=== PATIENT | male | born 1955 | race Caucasian/White ===

== ENCOUNTER 2023-06-19 10:03 | Outpatient (CLI) | payer OTHER | END 2023-06-19 23:59 | disposition critical access hospital (66) | LOC: EMS 10:03 | DX: E11.649 Type 2 diabetes mellitus with hypoglycemia without coma (principal) | CPT/HCPCS: A0425; A0427 ==

== ENCOUNTER 2023-06-19 10:22 | Emergency (ER) | payer OTHER ==
[2023-06-19 10:46] LABS: BASOPHILS # (AUTO) 0.1 10^3/uL (0.0-0.1); BASOPHILS % (AUTO) 0.5 %; EOSINOPHILS % (AUTO) 0.2 %; HCT - HEMATOCRIT 38.4 % (42.0-52.0); HGB - HEMOGLOBIN 11.9 g/dL (14.0-18.0); LYMPHOCYTES # (AUTO) 2.1 10^3/uL (1.5-3.5); LYMPHOCYTES % (AUTO) 11.4 %; MEAN CORPUSCULAR HEMOGLOBIN 28.5 pg (27.0-31.0); MEAN CORPUSCULAR VOLUME 91.9 fL (80.0-94.0); MEAN PLATELET VOLUME 10.4 fL (7.4-11.4); MONOCYTES # (AUTO) 0.6 10^3/uL (0.0-1.0); MONOCYTES % (AUTO) 3.3 %; NEUTROPHILS # (AUTO) 15.7 10^3/uL (1.5-6.6); NEUTROPHILS % (AUTO) 83.9 %; PLT - PLATELET COUNT 397 10^3/uL (130-450); RED BLOOD COUNT 4.18 10^6/uL (4.70-6.10); RED CELL DISTRIBUTION WIDTH 13.7 % (12.0-15.0); WHITE BLOOD COUNT 18.7 x10^3/uL (4.8-10.8)
[2023-06-19 11:06] LABS: ALBUMIN 4.8 g/dL (3.2-5.5)
[2023-06-19 11:12] LABS: ALBUMIN/GLOBULIN RATIO 1.9 (1.0-2.2); BILIRUBIN,TOTAL 0.4 mg/dL (0.2-1.0); CALCIUM 9.4 mg/dL (8.5-10.3); CREATININE 5.6 mg/dL (0.6-1.3); POTASSIUM 5.8 mmol/L (3.5-4.5); TOTAL PROTEIN 7.3 g/dL (6.4-8.9)
--- NOTE | 2023-06-19 11:15 | ED Physician Documentation ---
History of Present Illness - Stated complaint Stated Complaint: LOW BLOOD SUGAR - Chief complaint Chief Complaint: General - History obtained from History obtained from: Patient, EMS - Additonal information Additional information: 67-year-old male presents by EMS from his assisted living facility for altered mental status, hypoglycemia. History is obtained mostly from EMS, who states that patient has had nausea and diarrhea for the last several days. Staff checked on him this morning and he was found to be hypoglycemic in the 30s. They gave him oral glucose and a glucose tablet and called EMS. When EMS arrived his glucose was in the 90s, however shortly after they placed him in the ambulance his repeat glucose was in the 40s. He was given an amp of D25 and transported for evaluation. Patient is slightly confused on arrival, he is not certain why he is here. Patient has non insulin-dependent diabetes. Review of Systems Unable to obtain: Confused PD PAST MEDICAL HISTORY - Past Medical History Past Medical History: Yes Cardiovascular: Congestive heart failure, Hypertension, High cholesterol, Peripheral Vascular Disease Neuro: Parkinson's Endocrine/Autoimmune: Type 2 diabetes - Present Medications Home Medications: Ambulatory Orders Medication Instructions Recorded Confirmed Amlodipine Besylate [Norvasc] 10 mg PO DAILY 06/19/23 06/19/23 Aspirin [[place] Aspirin] 81 mg PO DAILY 06/19/23 06/19/23 Atorvastatin Calcium 40 mg PO HS 06/19/23 06/19/23 Cetirizine [ZyrTEC] 10 mg PO DAILY 06/19/23 06/19/23 DULoxetine [Cymbalta] 60 mg PO DAILY 06/19/23 06/19/23 Famotidine [Acid Patient Registration Supervisor] 20 mg PO DAILY 06/19/23 06/19/23 Furosemide [Lasix] 20 mg PO DAILY 06/19/23 06/19/23 Gabapentin [Neurontin] 600 mg PO TID 06/19/23 06/19/23 Glipizide [Glipizide Xl] 10 mg PO DAILY 06/19/23 06/19/23 Melatonin 10 mg PO HS 06/19/23 06/19/23 Meloxicam 7.5 mg PO DAILY 06/19/23 06/19/23 Metformin HCl 1,000 mg PO BID 06/19/23 06/19/23 Mirtazapine 30 mg PO DAILY 06/19/23 06/19/23 Trazodone HCl 100 mg PO HS 06/19/23 06/19/23 cilostazoL [Cilostazol] 100 mg PO DAILY 06/19/23 06/19/23 - Allergies Allergies/Adverse Reactions: Allergies Allergy/AdvReac Type Severity Reaction Status Date / Time No Known Drug Allergies Allergy Unverified 06/19/23 10:32 - Social History Does the pt smoke?: No Smoking Status: Never smoker PD ED PE NORMAL - Vitals Vital signs reviewed: Yes - General General: Other (disheveled, ill appearing, appears chronically unwell, older than stated age) - HEENT HEENT: Atraumatic - Neck Neck: Supple, no meningeal sign - Cardiac Cardiac: RRR - Respiratory Respiratory: No respiratory distress, Clear bilaterally - Abdomen Abdomen: Soft, Non distended - Derm Derm: Normal color, Warm and dry, No rash - Extremities Extremities: No deformity, No edema - Neuro Neuro: deck steward 2-12 intact, No motor deficit, Normal speech Results - Vitals Vitals: Vital Signs - 24 hr 06/19/23 06/19/23 06/19/23 10:26 12:31 14:00 Temperature 35.9 C L Heart Rate 97 95 94 Respiratory 16 18 15 Rate Blood Pressure 137/63 H 114/54 L 115/64 O2 Saturation 93 96 97 06/19/23 06/19/23 16:00 18:00 Temperature Heart Rate 87 93 Respiratory 16 16 Rate Blood Pressure 120/54 L 109/53 L O2 Saturation 100 100 Oxygen O2 Source Room air - Labs Labs: Laboratory Tests 06/19/23 06/19/23 06/19/23 10:20 10:42 10:42 WBC 18.7 H RBC 4.18 L Hgb 11.9 L Hct 38.4 L MCV 91.9 MCH 28.5 MCHC 31.0 L RDW 13.7 Plt Count 397 MPV 10.4 Neut # (Auto) 15.7 H Lymph # (Auto) 2.1 [place] # (Auto) 0.6 Eos # (Auto) 0.0 Baso # (Auto) 0.1 Absolute Nucleated RBC 0.00 Nucleated RBC % 0.0 Bld Gas Analysis Time Sample Site ABG pH ABG pCO2 ABG pO2 ABG HCO3 ABG Total CO2 ABG O2 Saturation ABG Base Excess Vinny Test Room Air Sodium 139 Potassium 5.8 H Chloride 99 L Carbon Dioxide 12 L* Anion Gap 28.0 H BUN 58 H Creatinine 5.6 H Estimated GFR (MDRD) 11 L Glucose 134 H Lactic Acid Calcium 9.4 Total Bilirubin 0.4 AST 14 ALT 25 Alkaline Phosphatase 77 Total Creatine Kinase Total Protein 7.3 Albumin 4.8 Globulin 2.5 Albumin/Globulin Ratio 1.9 Lipase 18 Urine Color Urine Clarity Urine pH Ur Specific [place] Urine Protein Urine Glucose (UA) Urine Ketones Urine Occult Blood Urine Nitrite Urine Bilirubin Urine Urobilinogen Ur Leukocyte Esterase Ur Microscopic Review Urine Culture Comments Salicylates < 1.5 Urine Opiates Screen Ur Oxycodone Screen Urine Methadone Screen Ur Propoxyphene Screen Acetaminophen < 0.1 Ur Barbiturates Screen Ur Tricyclics Screen Ur Phencyclidine Scrn Ur Amphetamine Screen U Methamphetamines Scrn U Benzodiazepines Scrn Urine Cocaine Screen U Cannabinoids Screen Ethyl Alcohol < 10.0 SARS-CoV-2 (PCR) 06/19/23 06/19/23 06/19/23 10:42 11:10 12:05 WBC RBC Hgb Hct MCV MCH MCHC RDW Plt Count MPV Neut # (Auto) Lymph # (Auto) [place] # (Auto) Eos # (Auto) Baso # (Auto) Absolute Nucleated RBC Nucleated RBC % Bld Gas Analysis Time 1140 Sample Site RIGHT RADIAL ABG pH 7.08 L* ABG pCO2 36 ABG pO2 112 H ABG HCO3 10.6 L ABG Total CO2 12.0 L ABG O2 Saturation 96 ABG Base Excess -19.0 L Vinny Test POSITIVE Room Air YES Sodium Potassium Chloride Carbon Dioxide Anion Gap BUN Creatinine Estimated GFR (MDRD) Glucose Lactic Acid > 10.0 H* Calcium Total Bilirubin AST ALT Alkaline Phosphatase Total Creatine Kinase 78 Total Protein Albumin Globulin Albumin/Globulin Ratio Lipase Urine Color Urine Clarity Urine pH Ur Specific [place] Urine Protein Urine Glucose (UA) Urine Ketones Urine Occult Blood Urine Nitrite Urine Bilirubin Urine Urobilinogen Ur Leukocyte Esterase Ur Microscopic Review Urine Culture Comments Salicylates Urine Opiates Screen Ur Oxycodone Screen Urine Methadone Screen Ur Propoxyphene Screen Acetaminophen Ur Barbiturates Screen Ur Tricyclics Screen Ur Phencyclidine Scrn Ur Amphetamine Screen U Methamphetamines Scrn U Benzodiazepines Scrn Urine Cocaine Screen U Cannabinoids Screen Ethyl Alcohol SARS-CoV-2 (PCR) 06/19/23 06/19/23 06/19/23 13:04 13:04 13:12 WBC RBC Hgb Hct MCV MCH MCHC RDW Plt Count MPV Neut # (Auto) Lymph # (Auto) [place] # (Auto) Eos # (Auto) Baso # (Auto) Absolute Nucleated RBC Nucleated RBC % Bld Gas Analysis Time Sample Site ABG pH ABG pCO2 ABG pO2 ABG HCO3 ABG Total CO2 ABG O2 Saturation ABG Base Excess Vinny Test Room Air Sodium Potassium Chloride Carbon Dioxide Anion Gap BUN Creatinine Estimated GFR (MDRD) Glucose Lactic Acid Calcium Total Bilirubin AST ALT Alkaline Phosphatase Total Creatine Kinase Total Protein Albumin Globulin Albumin/Globulin Ratio Lipase Urine Color YELLOW Urine Clarity CLEAR Urine pH 5.5 Ur Specific [place] 1.025 Urine Protein NEGATIVE Urine Glucose (UA) NEGATIVE Urine Ketones TRACE Urine Occult Blood NEGATIVE Urine Nitrite NEGATIVE Urine Bilirubin NEGATIVE Urine Urobilinogen 0.2 (NORMAL) Ur Leukocyte Esterase NEGATIVE Ur Microscopic Review NOT INDICATED Urine Culture Comments NOT INDICATED Salicylates Urine Opiates Screen NEGATIVE Ur Oxycodone Screen NEGATIVE Urine Methadone Screen NEGATIVE Ur Propoxyphene Screen NEGATIVE Acetaminophen Ur Barbiturates Screen NEGATIVE Ur Tricyclics Screen NEGATIVE Ur Phencyclidine Scrn NEGATIVE Ur Amphetamine Screen NEGATIVE U Methamphetamines Scrn NEGATIVE U Benzodiazepines Scrn NEGATIVE Urine Cocaine Screen NEGATIVE U Cannabinoids Screen NEGATIVE Ethyl Alcohol SARS-CoV-2 (PCR) NOT DETECTED 06/19/23 15:04 WBC RBC Hgb Hct MCV MCH MCHC RDW Plt Count MPV Neut # (Auto) Lymph # (Auto) [place] # (Auto) Eos # (Auto) Baso # (Auto) Absolute Nucleated RBC Nucleated RBC % Bld Gas Analysis Time Sample Site ABG pH ABG pCO2 ABG pO2 ABG HCO3 ABG Total CO2 ABG O2 Saturation ABG Base Excess Vinny Test Room Air Sodium 141 Potassium 5.4 H Chloride 99 L Carbon Dioxide 10 L* Anion Gap 32.0 H BUN 61 H Creatinine 5.7 H Estimated GFR (MDRD) 10 L Glucose 151 H Lactic Acid Calcium 8.8 Total Bilirubin 0.4 AST 14 ALT 24 Alkaline Phosphatase 69 Total Creatine Kinase Total Protein 6.7 Albumin 4.4 Globulin 2.3 Albumin/Globulin Ratio 1.9 Lipase Urine Color Urine Clarity Urine pH Ur Specific [place] Urine Protein Urine Glucose (UA) Urine Ketones Urine Occult Blood Urine Nitrite Urine Bilirubin Urine Urobilinogen Ur Leukocyte Esterase Ur Microscopic Review Urine Culture Comments Salicylates Urine Opiates Screen Ur Oxycodone Screen Urine Methadone Screen Ur Propoxyphene Screen Acetaminophen Ur Barbiturates Screen Ur Tricyclics Screen Ur Phencyclidine Scrn Ur Amphetamine Screen U Methamphetamines Scrn U Benzodiazepines Scrn Urine Cocaine Screen U Cannabinoids Screen Ethyl Alcohol SARS-CoV-2 (PCR) PD Medical Decision Making - ED course Complexity details: reviewed old records, reviewed results, re-evaluated patient, considered differential, d/w patient, d/w science consultant ED course: Chronically well-appearing without acutely toxic patient presenting for recurrent hypoglycemia. He does take a sulfonylurea as one of his diabetic medications. Laboratory work is ordered. We will closely monitor for recurrent hypoglycemia. No further episodes of hypoglycemia, however patient's laboratory work shows numerous derangements. There are no previous for comparison, however patient has elevated creatinine, decreased CO2, lactic acid greater than 10, potassium 5.8. Continued IV fluids with the addition of sodium bicarb and a drip. Elevated WBC count, uncertain etiology, but will broaden work-up to include blood cultures and a dose of IV antibiotics, however there is no obvious source at this time. Patient has no complaints other than his diarrhea. I spoke with nursing staff at his assisted living facility, who states that he has not been eating or drinking very much over the last several days because there is a COVID-19 outbreak at the assisted living facility and he is afraid of catching the virus. He was placed in an assisted living facility because he was not caring for himself while living independently at home and his daughter elected to place him in assisted care. He has not been on antibiotics recently. They do note that he has fallen multiple times over the last several days and most recently fell overnight. They state that he was checked on at midnight and he was in his bed, and when they checked on him again at 5 this morning he was found on the ground, which prompted them to check his blood glucose. Additional CT imaging ordered. Coffey placed for close urine output monitoring. Despite 2 L of normal saline as well as several hours on a bicarb drip the patient's laboratory work has actually worsened. After discussion with on-call hospitalist, it was agreed that this patient will likely eventually need dialysis, at the very least he needs to be in a facility with nephrology capabilities. Discussed patient's case with Dr. Tang of [facility] nephrology, who requested Lokelma 10 mg every 6 hours and continuation on bicarb drip, however this can be decreased to 125 cc/h. Agree that patient needs transfer to nephrology capable facility. - Critical Care Time(min): 68 Time Includes: Direct patient care, Review records, Reassess patient, Document care, Coordinate care, Medical consult, See progress note Data interpretation: Labs, ABG, CXR, Prior EKG, Cardiac output, See progress note Procedures included in critical care time: Peripheral IV Procedures excluded from critical care time: See progress note Departure - Departure Disposition: 02 Transfer Acute Care Hosp Clinical Impression: Metabolic acidosis Acute kidney failure Qualifiers: Acute renal failure type: unspecified Qualified Code(s): N17.9 - Acute kidney failure, unspecified Altered mental status Qualifiers: Altered mental status type: unspecified Qualified Code(s): R41.82 - Altered mental status, unspecified Diarrhea Qualifiers: Diarrhea type: unspecified type Qualified Code(s): R19.7 - Diarrhea, unspecified Condition: Poor Forms: PCP List
[2023-06-19 11:55] LABS: ABG HCO3 10.6 mmol/L (22.0-26.0); ABG OXYGEN SATURATION 96 % (94-98); ABG PCO2 36 mmHg (34-45); ABG PO2 112 mmHg (80-100); ALLEN TEST POSITIVE
[2023-06-19 11:57] LABS: ABG PH 7.08 (7.35-7.45)
[2023-06-19] MEDS: SODIUM CHLORIDE 0.9% 1,000 ML IV STA ×2 (12:07→14:25)
[2023-06-19] MEDS: SODIUM BICARBONATE 150 MEQ in DEXTROSE 5% 1,000 ML IV STA ×2 (12:39→18:33)
[2023-06-19] MEDS: PIPERACILLIN/TAZOBACTAM 3.375 GM in SODIUM CHLORIDE 0.9% MINIBAG 100 ML IV STA (12:41)
[2023-06-19 13:24] LABS: MUDS CUTOFF CONCENTRATIONS CUTOFF CONC BELOW:
[2023-06-19 13:26] LABS: BILIRUBIN,URINE NEGATIVE (NEGATIVE); GLUCOSE, URINE (UA) NEGATIVE (NEGATIVE); KETONES,URINE (UA) TRACE mg/dL (NEGATIVE); LEUKOCYTE ESTERASE, URINE NEGATIVE (NEGATIVE); NITRITE,URINE NEGATIVE (NEGATIVE); OCCULT BLOOD,URINE NEGATIVE (NEGATIVE); PH,URINE 5.5 PH (5.0-7.5); PROTEIN,URINE NEGATIVE (NEGATIVE); UROBILINOGEN,URINE 0.2 (NORMAL) E.U./dL (NORMAL)
[2023-06-19 13:29] LABS: CLARITY,URINE CLEAR (CLEAR)
[2023-06-19 13:30] LABS: ETOH - ETHANOL < 10.0 mg/dL
[2023-06-19 13:31] LABS: ACETAMINOPHEN < 0.1 ug/mL; SALICYLATE < 1.5 mg/dL
[2023-06-19 13:46] LABS: AMPHETAMINE SCREEN,URINE NEGATIVE (NEGATIVE); BARBITURATE SCREEN,UR NEGATIVE (NEGATIVE); BENZODIAZEPINES SCREEN, URINE NEGATIVE (NEGATIVE); COCAINE SCREEN URINE NEGATIVE (NEGATIVE); METHADONE SCREEN, URINE NEGATIVE (NEGATIVE); METHAMPHETAMINES SCREEN, URINE NEGATIVE (NEGATIVE); OPIATE SCREEN, URINE NEGATIVE (NEGATIVE); OXYCODONE SCREEN, URINE NEGATIVE (NEGATIVE); PROPOXYPHENE SCREEN, URINE NEGATIVE (NEGATIVE); THC CANNABINOID SCREEN, URINE NEGATIVE (NEGATIVE); TRICYCLIC ANTIDEPRESSANT,URINE NEGATIVE (NEGATIVE)
[2023-06-19] MEDS: LOPERAMIDE 2 MG CAPSULE PO STA (14:25)
--- NOTE | 2023-06-19 15:00 | CT Report ---
PROCEDURE: HEAD WO INDICATIONS: glf, ams TECHNIQUE: Noncontrast 4.5 mm thick angled axial sections acquired from the foramen magnum to the vertex. For r adiation dose reduction, the following was used: automated exposure control, adjustment of mA and/or kV according to patient size. COMPARISON: None. FINDINGS: Image quality: Excellent. CSF spaces: Basal cisterns are patent. No extra-axial fluid collections. Ventricles are normal in size and shape. Brain: No midline shift. No intracranial masses or hemorrhage. Moses-white matter interface is norm al. Skull and face: Calvarium and visualized facial bones are intact, without suspicious lesions. Sinuses: Visualized sinuses and mastoids are clear. IMPRESSION: 1. No acute intracranial process. Reviewed by: Cecily Dukes MD on 06/19/2023 2:58 PM PST Approved by: Cecily Dukes MD on 06/19/2023 2:58 PM PST Station ID: [id number]
--- NOTE | 2023-06-19 15:21 | CT Report ---
PROCEDURE: ABDOMEN/PELVIS WO INDICATIONS: ABD PAIN/DIARRHEA/NEW RENAL FAILURE TECHNIQUE: A CT scan of the abdomen and pelvis was performed without the use of intravenous contrast. Images we re recorded and evaluated at appropriate window settings. Reformats: coronal and sagittal. For radiat ion dose reduction, the following was used: automated exposure control, adjustment of mA and/or kV ac cording to patient size. COMPARISON: None. FINDINGS: Image quality: Fair. Lung bases and heart: No pleural effusion. Right gynecomastia. Liver: Unremarkable. Gallbladder and biliary tree: No radiopaque stones or wall thickening. No biliary dilation. Spleen: No splenomegaly. Pancreas: Chronic calcific pancreatitis. No fluid collection. Adrenals: No adrenal nodule. Kidneys and ureters: No hydronephrosis. Possible punctate nonobstructing left kidney stone, (). N o renal cystic lesion which requires follow up. No solid mass. Bowel and peritoneum: No bowel distension. No pathologic free fluid. A few colonic diverticuli. Yulisa l appendix. Lymph nodes: No central or retroperitoneal adenopathy. Vessels: No infrarenal aortic aneurysm. Extensive plaque. PELVIS Reproductive organs: Unremarkable. Bladder: Decompressed with Coffey catheter. No stone.. Pelvic lymph nodes: No pelvic adenopathy by size criteria. Bones: No aggressive osseous abnormality. Left hip arthroplasty. Other: No significant ventral. Bilateral fat-containing Inguinal hernias. Vas deferens calcifications . IMPRESSION: 1. No hydronephrosis. No obstructive kidney stone. 2. Findings of chronic calcific pancreatitis. 3. No bowel obstruction. No free fluid. Reviewed by: Antwan Van MD on 06/19/2023 3:19 PM PST Approved by: Antwan Van MD on 06/19/2023 3:19 PM PST Station ID: [id number]
[2023-06-19 15:55] LABS: ALBUMIN 4.4 g/dL (3.2-5.5)
[2023-06-19 16:08] LABS: ALBUMIN/GLOBULIN RATIO 1.9 (1.0-2.2); BILIRUBIN,TOTAL 0.4 mg/dL (0.2-1.0); CALCIUM 8.8 mg/dL (8.5-10.3); CREATININE 5.7 mg/dL (0.6-1.3); POTASSIUM 5.4 mmol/L (3.5-4.5); TOTAL PROTEIN 6.7 g/dL (6.4-8.9)
[2023-06-19] MEDS: SODIUM ZIRCONIUM CYCLOSILICATE 5 GM PACKET PO ONE (16:57)
[2023-06-19] MEDS: LACTATED RINGERS 1,000 ML IV STA (17:15)
[2023-06-19] MEDS ORDERED: SODIUM BICARBONATE 150 MEQ in DEXTROSE 5% 1,000 ML IV SCH (19:00)
[2023-06-19 21:14] LABS: BASOPHILS % (AUTO) 0.4 %; EOSINOPHILS % (AUTO) 0.1 %; HCT - HEMATOCRIT 34.8 % (42.0-52.0); HGB - HEMOGLOBIN 10.5 g/dL (14.0-18.0); MEAN CORPUSCULAR HEMOGLOBIN 28.8 pg (27.0-31.0); MEAN CORPUSCULAR HGB CONC 30.2 g/dL (32.0-36.0); MEAN CORPUSCULAR VOLUME 95.3 fL (80.0-94.0); MEAN PLATELET VOLUME 10.5 fL (7.4-11.4); MONOCYTES % (AUTO) 8.1 %; NEUTROPHILS % (AUTO) 82.3 %; PLT - PLATELET COUNT 366 10^3/uL (130-450); RED BLOOD COUNT 3.65 10^6/uL (4.70-6.10); RED CELL DISTRIBUTION WIDTH 13.7 % (12.0-15.0); WHITE BLOOD COUNT 26.9 x10^3/uL (4.8-10.8)
[2023-06-19 21:20] LABS: ABNORMAL LYMPHS % (MANUAL) 0 %; BAND NEUTROPHILS % (MANUAL) 0 %
[2023-06-19 21:27] LABS: VBG BASE EXCESS -24.5 mmol/L (-2 - +2); VBG HCO3 6.5 mmol/L (23-28); VBG PCO2 30.1 mmHg (41-51); VBG PO2 97.3 mmHg (25-47); VBG TOTAL CO2 7.4 mmol/L (24-29)
[2023-06-19 21:28] LABS: VBG OXYGEN SATURATION 95.2 % (60-80)
[2023-06-19 21:30] LABS: VBG PH 6.951 (7.31-7.41)
[2023-06-19 21:32] LABS: ALBUMIN 4.3 g/dL (3.2-5.5)
[2023-06-19 21:40] LABS: LYMPHOCYTES # (MANUAL) 2.7 10^3/uL (1.5-3.5); LYMPHOCYTES % (MANUAL) 10 %; METAMYELOCYTES % (MANUAL) 1 %; MONOCYTES # (MANUAL) 1.3 10^3/uL (0.0-1.0); NEUTROPHILS # (MANUAL) 22.6 10^3/uL (1.5-6.6)
[2023-06-19 21:41] LABS: DIFFERENTIAL COMMENT MANUAL DIFFERENTIAL; PLATELET ESTIMATE, MANUAL NORMAL (130-450,000) (NORMAL); PLATELET MORPHOLOGY NORMAL APPEARANCE (NORMAL); RBC MORPHOLOGY (MULTIPLE) NORMAL APPEARANCE (NORMAL)
[2023-06-19 21:43] LABS: BILIRUBIN,TOTAL 0.3 mg/dL (0.2-1.0); CALCIUM 8.3 mg/dL (8.5-10.3); POTASSIUM 4.9 mmol/L (3.5-4.5); TOTAL PROTEIN 6.4 g/dL (6.4-8.9)
--- NOTE | 2023-06-19 22:00 | XRAY Report ---
PROCEDURE: Chest 1 View X-Ray INDICATIONS: ARF, critically ill TECHNIQUE: One view of the chest was acquired. COMPARISON: None. FINDINGS: Surgical changes and devices: None. Lungs and pleura: No pleural effusions or pneumothorax. Lungs are clear. Mediastinum: Mediastinal contours appear normal. Heart size is normal. Bones and chest wall: No suspicious bony lesions. Overlying soft tissues appear unremarkable. IMPRESSION: No acute cardiopulmonary process. Reviewed by: Rui Sánchez on 06/19/2023 9:58 PM [facility] Approved by: Rui Sánchez on 06/19/2023 9:58 PM [facility] Station ID: [id number]
[2023-06-19 23:58] VITALS: BP 106/57; O2SAT 95
[2023-06-20] MEDS ORDERED: SODIUM ZIRCONIUM CYCLOSILICATE 5 GM PACKET PO SCH
--- NOTE | 2023-06-21 05:00 | ED Physician Documentation ---
ED Addendum - Addendum Addendum: 06/21/23 04:55 I received signout/turnover of care on this patient from Dr. Live at change of shift. Please see her note for complete history and physical. In brief, patient is found to be in acute renal failure with profound metabolic acidosis, unclear etiology. Additionally, he is hyperkalemic. At the time of the turnover of care, a bed at an appropriate facility is being sought (would need to include nephrology services as well as dialysis capability). Early in my shift, repeat labs are performed. White blood cell count is increased from 18.7 to 26.9. pH on the initial ABG was 7.08; on repeat labs, a VBG was undertaken and this reveals pH of 6.95. CO2 was initially 12, decreased to 10, and, on my repeat labs, CO2 level is 8. Lactate level is >10 on initial and repeat. Creatinine has worsened from 5.6 to 6.0. The only notable improvement is potassium, trending down from 5.8, to 5.4, to 4.9. I discussed this case with Dr. Orellana (tool designer apprentice at [facility]). He accepts transfer of patient to [facility]. 06/21/23 05:00
== END 2023-06-20 00:35 | disposition short-term general hospital (02) ==
LOC: EDBD → EDSEX → EDUNIT# → ED 10:22
DX: E87.20 Acidosis, unspecified (principal); N17.9 Acute kidney failure, unspecified; R41.82 Altered mental status, unspecified; R19.7 Diarrhea, unspecified; I11.0 Hypertensive heart disease with heart failure; I50.9 Heart failure, unspecified; E78.00 Pure hypercholesterolemia, unspecified; G20.A1 Parkinson's disease without dyskinesia, without mention of fluctuations; E11.9 Type 2 diabetes mellitus without complications; Z20.822 Contact with and (suspected) exposure to COVID-19; Z79.82 Long term (current) use of aspirin; Z79.899 Other long term (current) drug therapy; Z79.84 Long term (current) use of oral hypoglycemic drugs
CPT/HCPCS: 36415; 36600; 51702; 80053; 80306; 80307; 80320; 80329; 81001; 81003; 82550; 82803; 83605; 83690; 85025; 87040; 87086; 87635; 93005; 99285

== ENCOUNTER 2023-06-20 00:35 | Outpatient (CLI) | payer OTHER | END 2023-06-20 00:36 | disposition short-term general hospital (02) | LOC: EMS 00:35 | PROVIDERS: ATTEND Emergency Medicine | DX: N17.9 Acute kidney failure, unspecified (principal); E87.20 Acidosis, unspecified; E87.5 Hyperkalemia | CPT/HCPCS: A0425; A0426 ==